=== PATIENT | male | born 1990 | race Caucasian/White ===

== ENCOUNTER 2021-02-12 14:23 | Emergency (ER) | payer OTHER ==
--- NOTE | 2021-02-12 14:55 | ERPHSYRPT ---
- History of Present Illness Time Seen by Provider: 02/12/21 14:40 Source: patient Exam Limitations: no limitations Patient Subjective Stated Complaint: Main complaint: SOB. Patient states he was diagnosed with COVID-19 and pneumonia at [facility] ER on Sunday. He states he received "the infusion for COVID" here at [facility] on Sunday. The SOB today is new for him. States he didn't have the SOB when he [facility]. Triage Nursing Assessment: Patient ambulated back to ED without difficulties. Patient is alert and oriented and answering questions appropriately. Breathing is labored and rapid at this time. Anteroir lungs clear. Posterior bilateral lower lobes very diminished. Patient noted to have an occassional non-productive cough during assessment. Apical heart rate is normal. Physician History: This is a 30-year-old white male who was diagnosed with COVID-19 infection approximately 6 days ago and states that his symptoms of shortness of breath and fever were worsening in the last few days. Patient does not have a headache. He has minimal myalgias and arthralgias. He does not have chest pain. His shortness of breath seems to be worsening with activity. He has had no prod uctive cough but does have a cough. He denies diarrhea and he denies vomiting. He was seen in the respiratory clinic earlier today and his room air oxygenation saturations was in the high 80s and therefore he came into the emergency department for evaluation. Timing/Duration: day(s) (6) Cough Quality/Degree: mild, dry cough Possible Cause: no prior episodes Modifying Factors: Improves With: activity (Worsens), coughing, rest (Improves) Associated Symptoms: fever, cough, shortness of breath, No chest pain/soreness, No muscle aches, No sore throat Allergies/Adverse Reactions: Penicillins Allergy (Verified 02/12/21 14:54) Home Medications: Albuterol Sulfate [Proair Digihaler] 90 mcg PO TID 02/12/21 [History] Hx Tetanus, Diphtheria Vaccination/Date Given: Yes Hx Influenza Vaccination/Date Given: No Hx Pneumococcal Vaccination/Date Given: No Immunizations Up to Date: Yes Travel Risk - International Travel Have you traveled outside of the country in past 3 weeks: No - Coronavirus Screening Are you exhibiting any of the following symptoms?: Yes Symptoms: Fever, Cough: New Onset, Shortness of Breath, Loss of Taste or Smell, Headaches/Body Aches/Fatigue Close contact with a COVID-19 positive Pt in past 14-21 Days: No - Vaccine Status Have you recieved a Covid-19 vaccination: No - Review of Systems Constitutional: Fever, Weakness Eyes: No Symptoms Ears, Nose, & Throat: No Symptoms Respiratory: Cough, Dyspnea Cardiac: No Symptoms Abdominal/Gastrointestinal: No Symptoms Genitourinary Symptoms: No Symptoms Musculoskeletal: No Symptoms Skin: No Symptoms Neurological: No Symptoms Psychological: No Symptoms Endocrine: No Symptoms Hematologic/Lymphatic: No Symptoms Immunological/Allergic: No Symptoms All Other Systems: Reviewed and Negative - Past Medical History Pertinent Past Medical History: Yes Neurological History: No Pertinent History ENT History: No Pertinent History Cardiac History: No Pertinent History Respiratory History: Pneumonia Endocrine Medical History: No Pertinent History Musculoskeletal History: No Pertinent History GI Medical History: No Pertinent History History: No Pertinent History Psycho-Social History: No Pertinent History Male Reproductive Disorders: No Pertinent History Other Medical History: Seasonal allergies. Currently has COVID-19. - Past Surgical History Past Surgical History: Yes Neuro Surgical History: No Pertinent History Cardiac: No Pertinent History Respiratory: No Pertinent History Gastrointestinal: No Pertinent History Genitourinary: No Pertinent History Musculoskeletal: No Pertinent History Male Surgical History: No Pertinent History - Social History Smoking Status: Never smoker Exposure to second hand smoke: Yes (Dad) Drug Use: none Patient Lives Alone: No - Nursing Vital Signs Nursing Vital Signs: Initial Vital Signs Temperature 98.6 F 02/12/21 14:29 Pulse Rate 83 02/12/21 14:29 Respiratory Rate 30 H 02/12/21 14:29 Blood Pressure 149/80 02/12/21 14:29 O2 Sat by Pulse Oximetry 97 02/12/21 14:29 Pain Scale Pain Intensity 5 - Physical Exam General Appearance: no apparent distress, alert, anxiety Eye Exam: PERRL/EOMI, eyes nml inspection Ears, Nose, Throat Exam: normal ENT inspection, moist mucous membranes Neck Exam: normal inspection, non-tender, supple, full range of motion Respiratory Exam: normal breath sounds, lungs clear, airway intact, No chest tenderness, No respiratory distress Cardiovascular Exam: regular rate/rhythm, normal heart sounds, normal peripheral pulses Gastrointestinal/Abdomen Exam: soft, normal bowel sounds, No tenderness Rectal Exam: not done Back Exam: normal inspection, normal range of motion, No CVA tenderness, No vertebral tenderness Extremity Exam: normal inspection, normal range of motion, pelvis stable Neurologic Exam: alert, oriented x 3, cooperative, satellite dish repairer II-XII nml as tested, normal mood/affect, nml cerebellar function, nml station & gait, sensation nml Skin Exam: normal color, warm, dry Lymphatic Exam: No adenopathy SpO2 Interpretation: borderline oxygenation SpO2: 97 O2 Delivery: Room Air - Course Nursing assessment & vital signs reviewed: Yes EKG Interpreted by Me: RATE (79), Sinus Rhythm, NORMAL AXIS, NORMAL INTERVALS, NORMAL QRS, NORMAL ST-T, Other (No acute ischemic changes. No comparison EKG available.) Ordered Tests: Active Orders 24 hr Category Date Time Status EKG-ER Only STAT Care 02/12/21 14:55 Active IV Insertion STAT Care 02/12/21 14:55 Active Isolation, Initiate & Maintain STAT Care 02/12/21 14:55 Active Pulse Oximetry (ED) STAT Care 02/12/21 14:55 Active CHEST 1 VIEW (PORTABLE) Stat Exams 02/12/21 14:56 Taken CHEST WITH CONTRAST [CT] Stat Exams 02/12/21 16:03 Taken BLOOD CULTURE Stat Lab 02/12/21 15:00 Received CBC W DIFF Stat Lab 02/12/21 14:55 Completed CMP Stat Lab 02/12/21 14:55 Completed D-DIMER QUANTITATIVE Stat Lab 02/12/21 14:55 Completed Ferritin Stat Lab 02/12/21 14:55 Completed INFLUENZA A+B JERRY Stat Lab 02/12/21 14:55 Completed LDH-LACTATE DEHYDROGENASE Stat Lab 02/12/21 14:55 Completed Lactic Acid Stat Lab 02/12/21 15:05 Completed Lactic Acid Stat Lab 02/12/21 17:09 Received Bacon Screen Stat Lab 02/12/21 15:15 Completed TROPONIN Q3H Lab 02/12/21 15:00 Completed TROPONIN Q3H Lab 02/12/21 18:00 Ordered TROPONIN Q3H Lab 02/12/21 21:00 Ordered TROPONIN Q3H Lab 02/13/21 00:00 Ordered TROPONIN Q3H Lab 02/13/21 03:00 Ordered UA W/RFX UR CULTURE Stat Lab 02/12/21 14:59 Completed Respiratory MDI STAT RT 02/12/21 15:32 Active Respiratory Therapy Assessment DAILY RT 02/12/21 15:31 Active Medication Summary Discontinued Medications Generic Name Dose Route Start Last Admin Trade Name Marilyn PRN Reason Stop Dose Admin Hydrocodone Bitart/Acetaminophen 10 ml 02/12/21 15:14 02/12/21 15:28 Hydrocodone/Acetaminophen 5 Ml Udcup PO 02/12/21 15:15 10 ml STAT STA Administration Hydrocodone Bitart/Acetaminophen Confirm 02/12/21 15:21 Hydrocodone/Acetaminophen 5 Ml Udcup Administered 02/12/21 15:22 Dose 10 ml .ROUTE .STK-MED ONE Albuterol Sulfate 1 gm 02/12/21 15:15 Albuterol Sulfate 8 Gm Mdi Hfa IH 02/12/21 15:16 STAT ONE Albuterol Sulfate 4 puff 02/12/21 15:31 02/12/21 15:25 Albuterol Common Canister Inhaler IH 02/12/21 15:32 4 puff STAT ONE Administration Methylprednisolone Sodium 0 mg 02/12/21 15:14 02/12/21 15:26 Succinate 125 mg/ Sterile IV 02/12/21 15:15 125 mg Water 2 ml STAT ONE Administration Sodium Chloride 500 mls @ 500 mls/hr 02/12/21 14:57 02/12/21 16:04 Sodium Chloride 0.9% 500 Ml IV 02/12/21 15:56 Infused .Q1H ONE Infusion Sodium Chloride Confirm 02/12/21 15:01 Sodium Chloride 0.9% 500 Ml Administered 02/12/21 15:02 Dose 500 mls @ ud IV .STK-MED ONE Methylprednisolone Sodium Succinate Confirm 02/12/21 15:20 Methylprednis Sod Succ 125 Mg/2 Ml Vial Administered 02/12/21 15:21 Dose 125 mg .ROUTE .STK-MED ONE Sterile Water Confirm 02/12/21 15:20 Water For Injection,Sterile 10 Ml Vial Administered 02/12/21 15:21 Dose 10 ml IJ .STK-MED ONE Lab/Rad Data: Laboratory Result Diagrams 02/12/21 14:55 02/12/21 14:55 Laboratory Results 02/12/21 02/12/21 02/12/21 Range/Units 15:15 15:05 15:00 WBC (4.0-10.5) K/mm3 RBC (4.1-5.6) M/mm3 Hgb (12.5-18.0) gm/dl Hct (42-50) % MCV (78-100) fl MCH (26-32) pg MCHC (32-36) g/dl RDW (11.5-14.0) % Plt Count (150-450) K/mm3 MPV (7.5-11.0) fl Gran % (36.0-66.0) % Eos # (Auto) (0-0.5) Absolute Lymphs (auto) (1.0-4.6) Absolute Monos (auto) (0.0-1.3) Lymphocytes % (24.0-44.0) % Monocytes % (0.0-12.0) % Eosinophils % (0.00-5.0) % Basophils % (0.0-0.4) % Absolute Granulocytes (1.4-6.9) Basophils # (0-0.4) D-Dimer (215-500) ng/mL Sodium (137-145) mmol/L Potassium (3.5-5.1) mmol/L Chloride (98-107) mmol/L Carbon Dioxide (22-30) mmol/L Anion Gap (5-15) MEQ/L BUN (9-20) mg/dL Creatinine (0.66-1.25) mg/dL Estimated GFR ML/MIN Glucose (74-106) mg/dL Lactic Acid 2.1 H (0.4-2.0) Calcium (8.4-10.2) mg/dL Ferritin (17.9-464) ng/mL Total Bilirubin (0.2-1.3) mg/dL AST (17-59) U/L ALT (0-50) U/L Alkaline Phosphatase (38-126) U/L Lactate Dehydrogenase (120-246) U/L Troponin I < 0.012 (0.000-0.034) ng/mL Serum Total Protein (6.3-8.2) g/dL Albumin (3.5-5.0) g/dL Urine Color (YELLOW) Urine Appearance (CLEAR) Urine pH (5-6) Ur Specific [place] (1.005-1.025) Urine Protein (Negative) Urine Ketones (NEGATIVE) Urine Blood (0-5) Ryan/ul Urine Nitrite (NEGATIVE) Urine Bilirubin (NEGATIVE) Urine Urobilinogen (0-1) mg/dL Ur Leukocyte Esterase (NEGATIVE) Urine WBC (Auto) (0-5) /HPF Urine RBC (Auto) (0-2) /HPF U Epithel Cells (Auto) (FEW) /HPF Urine Bacteria (Auto) (NEGATIVE) /HPF Urine Culture Reflexed (NO) Urine Glucose (NEGATIVE) mg/dL Monoscreen NEGATIVE (Negative) Influenza Type A Ag (NEGATIVE) Influenza Type B Ag (NEGATIVE) Group A Strep Antibody (NEGATIVE) 02/12/21 02/12/21 02/12/21 Range/Units 14:59 14:55 14:55 WBC (4.0-10.5) K/mm3 RBC (4.1-5.6) M/mm3 Hgb (12.5-18.0) gm/dl Hct (42-50) % MCV (78-100) fl MCH (26-32) pg MCHC (32-36) g/dl RDW (11.5-14.0) % Plt Count (150-450) K/mm3 MPV (7.5-11.0) fl Gran % (36.0-66.0) % Eos # (Auto) (0-0.5) Absolute Lymphs (auto) (1.0-4.6) Absolute Monos (auto) (0.0-1.3) Lymphocytes % (24.0-44.0) % Monocytes % (0.0-12.0) % Eosinophils % (0.00-5.0) % Basophils % (0.0-0.4) % Absolute Granulocytes (1.4-6.9) Basophils # (0-0.4) D-Dimer 854 H* (215-500) ng/mL Sodium (137-145) mmol/L Potassium (3.5-5.1) mmol/L Chloride (98-107) mmol/L Carbon Dioxide (22-30) mmol/L Anion Gap (5-15) MEQ/L BUN (9-20) mg/dL Creatinine (0.66-1.25) mg/dL Estimated GFR ML/MIN Glucose (74-106) mg/dL Lactic Acid (0.4-2.0) Calcium (8.4-10.2) mg/dL Ferritin (17.9-464) ng/mL Total Bilirubin (0.2-1.3) mg/dL AST (17-59) U/L ALT (0-50) U/L Alkaline Phosphatase (38-126) U/L Lactate Dehydrogenase (120-246) U/L Troponin I (0.000-0.034) ng/mL Serum Total Protein (6.3-8.2) g/dL Albumin (3.5-5.0) g/dL Urine Color YELLOW (YELLOW) Urine Appearance CLEAR (CLEAR) Urine pH 8.0 (5-6) Ur Specific [place] 1.016 (1.005-1.025) Urine Protein NEGATIVE (Negative) Urine Ketones NEGATIVE (NEGATIVE) Urine Blood NEGATIVE (0-5) Ryan/ul Urine Nitrite NEGATIVE (NEGATIVE) Urine Bilirubin NEGATIVE (NEGATIVE) Urine Urobilinogen 4 (0-1) mg/dL Ur Leukocyte Esterase NEGATIVE (NEGATIVE) Urine WBC (Auto) NONE (0-5) /HPF Urine RBC (Auto) NONE (0-2) /HPF U Epithel Cells (Auto) MODERATE (FEW) /HPF Urine Bacteria (Auto) RARE (NEGATIVE) /HPF Urine Culture Reflexed NO (NO) Urine Glucose NEGATIVE (NEGATIVE) mg/dL Monoscreen (Negative) Influenza Type A Ag (NEGATIVE) Influenza Type B Ag (NEGATIVE) Group A Strep Antibody NOT DETECTED (NEGATIVE) 02/12/21 02/12/21 02/12/21 Range/Units 14:55 14:55 14:55 WBC 10.0 (4.0-10.5) K/mm3 RBC 5.43 (4.1-5.6) M/mm3 Hgb 14.9 (12.5-18.0) gm/dl Hct 47.0 (42-50) % MCV 86.6 (78-100) fl MCH 27.4 (26-32) pg MCHC 31.7 L (32-36) g/dl RDW 14.9 H (11.5-14.0) % Plt Count 296 (150-450) K/mm3 MPV 9.9 (7.5-11.0) fl Gran % 79.4 H (36.0-66.0) % Eos # (Auto) 0.01 (0-0.5) Absolute Lymphs (auto) 0.91 L (1.0-4.6) Absolute Monos (auto) 1.12 (0.0-1.3) Lymphocytes % 9.1 L (24.0-44.0) % Monocytes % 11.3 (0.0-12.0) % Eosinophils % 0.1 (0.00-5.0) % Basophils % 0.1 (0.0-0.4) % Absolute Granulocytes 7.90 H (1.4-6.9) Basophils # 0.01 (0-0.4) D-Dimer (215-500) ng/mL Sodium 139 (137-145) mmol/L Potassium 3.9 (3.5-5.1) mmol/L Chloride 102 (98-107) mmol/L Carbon Dioxide 26 (22-30) mmol/L Anion Gap 13.8 (5-15) MEQ/L BUN 12 (9-20) mg/dL Creatinine 0.62 L (0.66-1.25) mg/dL Estimated GFR > 60.0 ML/MIN Glucose 119 H (74-106) mg/dL Lactic Acid (0.4-2.0) Calcium 8.5 (8.4-10.2) mg/dL Ferritin 386 (17.9-464) ng/mL Total Bilirubin 0.60 (0.2-1.3) mg/dL AST 39 (17-59) U/L ALT 38 (0-50) U/L Alkaline Phosphatase 57 (38-126) U/L Lactate Dehydrogenase 391 H (120-246) U/L Troponin I (0.000-0.034) ng/mL Serum Total Protein 6.9 (6.3-8.2) g/dL Albumin 3.8 (3.5-5.0) g/dL Urine Color (YELLOW) Urine Appearance (CLEAR) Urine pH (5-6) Ur Specific [place] (1.005-1.025) Urine Protein (Negative) Urine Ketones (NEGATIVE) Urine Blood (0-5) Ryan/ul Urine Nitrite (NEGATIVE) Urine Bilirubin (NEGATIVE) Urine Urobilinogen (0-1) mg/dL Ur Leukocyte Esterase (NEGATIVE) Urine WBC (Auto) (0-5) /HPF Urine RBC (Auto) (0-2) /HPF U Epithel Cells (Auto) (FEW) /HPF Urine Bacteria (Auto) (NEGATIVE) /HPF Urine Culture Reflexed (NO) Urine Glucose (NEGATIVE) mg/dL Monoscreen (Negative) Influenza Type A Ag NEGATIVE (NEGATIVE) Influenza Type B Ag NEGATIVE (NEGATIVE) Group A Strep Antibody (NEGATIVE) - Progress Progress: improved, re-examined Air Movement: good Progress Note: 02/12/21 17:28 Chest x-ray shows bibasilar groundglass opacities. No consolidation. CAT scan of the chest with contrast shows no discrete central pulmonary embolus. There is multifocal bilateral groundglass infiltrates. Blood Culture(s) Obtained: Yes Antibiotics given: No Counseled pt/family regarding: lab results, diagnosis, need for follow-up, rad results - Departure Departure Disposition: Home Clinical Impression: COVID-19 virus infection Condition: Stable Critical Care Time: No Additional Instructions: Drink plenty of fluids. Use your albuterol inhaler every 4 hours while awake. Take your steroids and your cough medicine as prescribed. Return to the emergency department if symptoms worsen. Follow-up with your primary care physician for persistent symptoms. Continue to quarantine your self as instructed. Prescriptions: Hydrocodone/Acetaminophen [Hydrocodone-Acetamn 7.5-325/15] 10 ml PO Q8H PRN PRN #120 ml MDD 30ml PRN Reason: Cough Prednisone 10 mg [Deltasone 10 mg] 10 mg PO TID #12 tablet Azithromycin 250 mg [Zithromax 250 MG TABLET] 250 mg PO ZPACK #6 tablet
[2021-02-12] MEDS ORDERED: Sodium Chloride 0.9% 500 ML 500 ML IV ONE ×2 (14:57→15:01)
[2021-02-12 15:04] LABS: BASOPHIL % 0.1 % (0.0-0.4); Basophil (Absolute #) 0.01 (0-0.4); Eosinophil % 0.1 % (0.00-5.0); Eosinophil (Absolute #) 0.01 (0-0.5); Hemoglobin 14.9 gm/dl (12.5-18.0); Lymphocyte (Absolute #) 0.91 (1.0-4.6); Lymphocytes % 9.1 % (24.0-44.0); Mean Cell Volume 86.6 fl (78-100); Mean Corpuscular Hemoglobin 27.4 pg (26-32); Mean Corpuscular Hgb Concent. 31.7 g/dl (32-36); Mean Platelet Volume 9.9 fl (7.5-11.0); Monocyte (Absolute #) 1.12 (0.0-1.3); Monocytes % 11.3 % (0.0-12.0); Neutrophil % 79.4 % (36.0-66.0); Platelet Count 296 K/mm3 (150-450); Red Blood Count 5.43 M/mm3 (4.1-5.6); Red Cell Distribution Width 14.9 % (11.5-14.0)
[2021-02-12] MEDS ORDERED: solu-MEDROL 125 MG, Sterile H2O 10 ml 2 ML IV ONE ×2 (15:14)
[2021-02-12] MEDS ORDERED: HYDROCODONE-ACETAMIN 2.5-108/5 ML SOLUTION PO STA (15:14)
[2021-02-12] MEDS ORDERED: Ventolin Hfa MDI IH ONE (15:15)
[2021-02-12 15:16] LABS: Appearance CLEAR (CLEAR); Bacteria RARE /HPF (NEGATIVE); Bilirubin NEGATIVE (NEGATIVE); Blood NEGATIVE Ery/ul (0-5); Epithelial Cells MODERATE /HPF (FEW); Glucose NEGATIVE (NEGATIVE); Ketones NEGATIVE (NEGATIVE); Leukocyte Esterase NEGATIVE (NEGATIVE); Nitrite NEGATIVE (NEGATIVE); Protein,Urine Dip NEGATIVE (Negative); Specific Gravity 1.016 (1.005-1.025); Urobilinogen 4 mg/dL (0-1)
[2021-02-12] MEDS ORDERED: Sterile H2O 10 ml IJ ONE (15:20)
[2021-02-12] MEDS ORDERED: solu-MEDROL ONE (15:20)
[2021-02-12] MEDS ORDERED: HYDROCODONE-ACETAMIN 2.5-108/5 ML SOLUTION ONE (15:21)
[2021-02-12] MEDS ORDERED: VENTOLIN COMMON CANISTER IH ONE (15:31)
[2021-02-12 15:57] LABS: ALBUMIN 3.8 g/dL (3.5-5.0); ALKALINE PHOSPHATASE 57 U/L (38-126); ANION GAP 13.8 MEQ/L (5-15); BLOOD UREA NITROGEN 12 mg/dL (9-20); CHLORIDE 102 mmol/L (98-107); Calcium 8.5 mg/dL (8.4-10.2); Carbon Dioxide 26 mmol/L (22-30); Creatinine 1 0.62 mg/dL (0.66-1.25); EST GLOMERULAR FILTRATION RATE > 60.0 ML/MIN; Ferritin 386 ng/mL (17.9-464); Glucose 119 mg/dL (74-106); LDH-LACTATE DEHYDROGENASE 391 U/L (120-246); Potassium 3.9 mmol/L (3.5-5.1); SGOT/AST 39 U/L (17-59); SGPT/ALT 38 U/L (0-50); SODIUM 139 mmol/L (137-145); Total Protein 6.9 g/dL (6.3-8.2)
[2021-02-12 16:01] LABS: INFLUENZA A NEGATIVE (NEGATIVE); INFLUENZA B NEGATIVE (NEGATIVE)
--- NOTE | 2021-02-12 20:09 | XRAY ---
Indication: Cough. Elevated d-dimer. Covid 19. Multiple contiguous axial images obtained through the chest using 100 cc Isovue 370 contrast and PE protocol. Comparison: None. There is poor opacification of the pulmonary arteries limiting evaluation for pulmonary embolus. No obvious central pulmonary embolus. Heart not enlarged. Aorta normal in course and caliber. Small right hilar calcified nodes. No pathologic mediastinal/hilar lymphadenopathy. Lungs demonstrates marked diffuse patchy consolidating airspace disease greatest in both lower lobes. No effusion. Bony thorax intact. Limited upper abdomen unremarkable. Impression: 1. Pulmonary embolus evaluation limited due to poor contrast opacification. No obvious pulmonary embolus. 2. Diffuse bilateral consolidating airspace disease. Common: Preliminary interpretation made by [facility]. No critical discrepancy.
--- NOTE | 2021-02-12 20:11 | XRAY ---
Indication: Fever and cough. Recent Covid 19. Comparison: March 22, 2007. Portable chest demonstrates new diffuse bilateral patchy airspace disease without large effusion. Remaining heart and bony thorax normal.
== END 2021-02-12 18:11 | disposition home or self-care (01) ==
LOC: ED 14:23
DX: U07.1 COVID-19 (principal); R50.9 Fever, unspecified; R05.9 Cough, unspecified
CPT/HCPCS: 36000; 36415; 71045; 71260; 80053; 81001; 82728; 83605; 83615; 84484; 85025; 85379; 86308; 87040; 87400; 87651; 93005; 94640; 94760; 96374; 99284; J2930; A9270-GY